=== PATIENT | male | born 1995 | race Caucasian/White ===

== ENCOUNTER 2018-01-01 13:52 | Emergency (ER) | payer OTHER, SELFPAY ==
[2018-01-01 14:09] VITALS: BP 144/80; PULSE 89; RESP 32; TEMP 37.1; O2SAT 100
--- NOTE | 2018-01-01 14:15 | DI.RAD.S_ITS ---
PROCEDURE: XR CHEST 1V INDICATIONS: soa TECHNIQUE: One view of the chest was acquired. COMPARISON: None. FINDINGS: Surgical changes and devices: None. Lungs and pleura: No pleural effusions or pneumothorax. Lungs are clear. Mediastinum: Mediastinal contours appear normal. Heart size is normal. Bones and chest wall: No suspicious bony lesions. Overlying soft tissues appear unremarkable. IMPRESSION: No acute cardiopulmonary abnormality Dictated by: Mika Cruz M.D. on 01/01/2018 at 14:38 Approved by: Mika Cruz M.D. on 01/01/2018 at 14:38
--- NOTE | 2018-01-01 14:35 | PC.NURSE ---
h/o anxiety, has weaned off zoloft. States usually only gets anxiety at night 'while sleeping'. Continues to be anxious, difficult to verbally redirect.
[2018-01-01 15:05] VITALS: BP 123/70; PULSE 75; RESP 12; O2SAT 100
--- NOTE | 2018-01-01 15:08 | ED.SOB ---
HPI - SOB/Dyspnea <JAYNE Gomez - Last Filed: 01/01/18 22:26> General Chief Complaint: Shortness of Breath/Dyspnea Stated Complaint: CANT BREATHE, FEELS TINGLING, DIZZY Time Seen by Provider: 01/01/18 15:16 Source: patient Mode of arrival: ambulatory Limitations: no limitations History of Present Illness 22-year-old male with history of anxiety and panic attacks here for complaint of having feelings of anxiousness with chest pressure and tingling to his upper extremities. He denies any chest pain. No fevers no chills. He is not having any discomfort at this time. He does report that he was taking off his Zoloft a few months ago. He denies any recent stress or stressors. He denies any other concerns or complaints at this time. Related Data Home Medications Medication Instructions Recorded Confirmed No Known Home Medications 01/01/18 01/01/18 Allergies Allergy/AdvReac Type Severity Reaction Status Date / Time No Known Drug Allergies Allergy Verified 01/01/18 14:13 Review of Systems <JAYNE Gomez - Last Filed: 01/01/18 22:26> Constitutional Denies chills, Denies fever(s), Denies lethargy and Denies weakness Eyes Denies change in vision, Denies eye discharge, Denies irritation and Denies loss of vision ENT Ears, Nose, Mouth, and Throat: Denies change in voice, Denies neck pain and Denies sore throat Cardiovascular Denies chest pain, Denies irregular heart rhythm, Denies lightheadedness, Denies palpitations, Denies dyspnea, Denies dyspnea on exertion and Denies orthopnea Comments: Chest pressure Respiratory Denies cough, Denies dyspnea, Denies dyspnea on exertion and Denies wheezing Gastrointestinal Gastrointestinal: Denies abdominal pain, Denies change in bowel habits, Denies diarrhea, Denies nausea and Denies vomiting Genitourinary Denies hematuria, Denies flank pain, Denies urinary incontinence and Denies urinary urgency Musculoskeletal Denies neck pain Integumentary/Breasts Denies pruritus, Denies erythema, Denies rash and Denies wounds Neurologic Denies confusion, Denies loss of vision and Denies weakness Psychiatric Reports anxiety, Denies confusion, Denies depression, Denies homicidal ideation and Denies suicidal ideation Endocrine Denies palpitations Hematologic/Lymphatic Denies easy bruising Allergic/Immunologic Denies wheezing Exam <JAYNE Gomez - Last Filed: 01/01/18 22:26> Initial Vital Signs Initial Vital Signs: Vital Signs Temperature 98.8 F 01/01/18 14:09 Pulse Rate 89 01/01/18 14:09 Respiratory Rate 32 H 01/01/18 14:09 Blood Pressure 144/80 H 01/01/18 14:09 Pulse Oximetry 100 01/01/18 14:09 Const General: cooperative and well developed Nutritional Appearance: well nourished Orientation: alert, awake, oriented x3 and not confused [facility] Mouth: oral mucosae normal and moist mucous membranes Eyes Conjunctivae: conjunctivae normal Sclera: sclerae normal Pupils: PERRL EOM: EOM intact bilaterally Resp Effort & Inspection: normal respiratory effort, able to speak in complete sentences, no respiratory distress and no use of accessory muscles Auscultation: clear to auscultation bilaterally, no rales, no rhonchi and no wheezes Cardio Rate: regular rate Rhythm: regular rhythm Heart Sounds: no click, no gallops, no murmurs and no rubs Pulses: normal peripheral pulses Skin General: no rashes or lesions noted, No jaundice and No petechiae Neuro General: alert, oriented x3, gait normal and no focal motor deficits Speech: speech normal <Arya Tejada DO - Last Filed: 01/03/18 11:40> Initial Vital Signs Initial Vital Signs: Vital Signs Temperature 98.8 F 01/01/18 14:09 Pulse Rate 89 01/01/18 14:09 Respiratory Rate 32 H 01/01/18 14:09 Blood Pressure 144/80 H 01/01/18 14:09 Pulse Oximetry 100 01/01/18 14:09 Course <JAYNE Gomez - Last Filed: 01/01/18 22:26> Orders Ordered: Discontinued Medications Lorazepam (Ativan) 1 mg IV NOW ONE Stop: 01/01/18 15:17 Last Admin: 01/01/18 15:22 Dose: Lorazepam (Ativan) 1 mg PO NOW ONE Stop: 01/01/18 15:24 Last Admin: 01/01/18 15:27 Dose: 1 mg Vital Signs - 8 hr 01/01/18 15:05 01/01/18 15:37 01/01/18 16:11 Pulse Rate 75 80 66 Respiratory Rate 12 19 14 Blood Pressure [Left Arm] 123/70 H 132/66 H 137/72 H Pulse Oximetry 100 100 99 <Arya Tejada DO - Last Filed: 01/03/18 11:40> Orders Ordered: Discontinued Medications Lorazepam (Ativan) 1 mg IV NOW ONE Stop: 01/01/18 15:17 Last Admin: 01/01/18 15:22 Dose: Lorazepam (Ativan) 1 mg PO NOW ONE Stop: 01/01/18 15:24 Last Admin: 01/01/18 15:27 Dose: 1 mg Vital Signs - 8 hr 01/01/18 15:05 01/01/18 15:37 01/01/18 16:11 Pulse Rate 75 80 66 Respiratory Rate 12 19 14 Blood Pressure [Left Arm] 123/70 H 132/66 H 137/72 H Pulse Oximetry 100 100 99 MDM - SOB/Dyspnea <JAYNE Gomez - Last Filed: 01/01/18 22:26> Lab Data Result diagrams: 01/01/18 15:20 01/01/18 15:20 Lab Results 01/01/18 01/01/18 Range/Units 15:20 15:20 WBC 6.8 (4.5-11.0) X10^3/uL RBC 4.66 (4.5-5.9) X10^6/uL Hgb 14.1 (13.5-17.5) g/dL Hct 39.4 L (41-53) % MCV 84.6 (80-100) fL MCH 30.3 (26-34) PG MCHC 35.8 (30-36) % RDW 12.2 (11.6-14.8) % Plt Count 249 (150-400) X10^3/uL Neut % (Auto) 58.8 (50-75) % Lymph % (Auto) 28.5 (25-40) % Woods % (Auto) 8.2 (3-14) % Eos % (Auto) 3.9 (2-4) % Baso % (Auto) 0.6 (0-2) % Neut # (Auto) 4000 (4312-5890) /uL Sodium 138 (137-145) mmol/L Potassium 3.6 (3.4-5.1) mmol/L Chloride 104 (98-107) mmol/L Carbon Dioxide 23 (22-32) mmol/L BUN 12 (9-20) mg/dL Creatinine 0.80 (0.66-1.25) mg/dL Estimated GFR > 60.0 (>60) mL/min BUN/Creatinine Ratio 15.0 (6-22) Glucose 105 H (70-100) mg/dL Calcium 9.8 (8.4-10.2) mg/dL Total Bilirubin 0.8 (0.2-1.3) mg/dL AST 28 (17-59) IU/L ALT 34 (21-72) IU/L Alkaline Phosphatase 62 (38-126) U/L Total Creatine Kinase 128 (55-170) U/L CK-MB (CK-2) 0.84 (<2.37) ng/mL CK-MB (CK-2) Rel Index 0.7 L (1.5-5.0) % Troponin I < 0.012 (0.01-0.034) ng/mL Total Protein 7.1 (6.3-8.2) g/dL Albumin 4.4 (3.5-5.0) g/dL Globulin 2.7 (1.7-4.1) g/dL Albumin/Globulin Ratio 1.6 (1.0-2.8) Imaging Data Chest x-ray: Radiologist's impression: Patient: LORENZO VARGHESE MR#: [id number] : 1995 Acct:[id number] Age/Sex: 22 / M Date of Service: 01/01/18 Loc: ED Accession Number: [id number] Procedure: XR chest 1V Ordering Provider: Arya Tejada D.O. PROCEDURE: XR CHEST 1V INDICATIONS: soa TECHNIQUE: One view of the chest was acquired. COMPARISON: None. FINDINGS: Surgical changes and devices: None. Lungs and pleura: No pleural effusions or pneumothorax. Lungs are clear. Mediastinum: Mediastinal contours appear normal. Heart size is normal. Bones and chest wall: No suspicious bony lesions. Overlying soft tissues appear unremarkable. IMPRESSION: No acute cardiopulmonary abnormality Dictated by: Mika Cruz M.D. on 01/01/2018 at 14:38 Approved by: Mika Cruz M.D. on 01/01/2018 at 14:38 ECG Data Interpretation: EKG shows normal sinus rhythm with no ST elevation or depression. No ectopy. Ventricular rate of 80. Pr interval of 123. QRS duration 97. QT 357. MDM Narrative Medical decision making narrative: CBC and Chem panel were unremarkable. Chest x-ray was obtained was negative. EKG shows normal sinus rhythm without ST elevation or depression. No ectopy. Cardiac enzymes were obtained were unremarkable. Signs and symptoms presents as anxiety related symptoms with anxiety attack. He was given Ativan in the emergency room which helped his symptoms. Follow up with primary care provider next couple days for re-evaluation and discussion of continued anxiety treatment. For any worsening symptoms return to the emergency room. <Arya Tejada DO - Last Filed: 01/03/18 11:40> Lab Data Lab Results 01/01/18 01/01/18 Range/Units 15:20 15:20 WBC 6.8 (4.5-11.0) X10^3/uL RBC 4.66 (4.5-5.9) X10^6/uL Hgb 14.1 (13.5-17.5) g/dL Hct 39.4 L (41-53) % MCV 84.6 (80-100) fL MCH 30.3 (26-34) PG MCHC 35.8 (30-36) % RDW 12.2 (11.6-14.8) % Plt Count 249 (150-400) X10^3/uL Neut % (Auto) 58.8 (50-75) % Lymph % (Auto) 28.5 (25-40) % Woods % (Auto) 8.2 (3-14) % Eos % (Auto) 3.9 (2-4) % Baso % (Auto) 0.6 (0-2) % Neut # (Auto) 4000 (1775-4845) /uL Sodium 138 (137-145) mmol/L Potassium 3.6 (3.4-5.1) mmol/L Chloride 104 (98-107) mmol/L Carbon Dioxide 23 (22-32) mmol/L BUN 12 (9-20) mg/dL Creatinine 0.80 (0.66-1.25) mg/dL Estimated GFR > 60.0 (>60) mL/min BUN/Creatinine Ratio 15.0 (6-22) Glucose 105 H (70-100) mg/dL Calcium 9.8 (8.4-10.2) mg/dL Total Bilirubin 0.8 (0.2-1.3) mg/dL AST 28 (17-59) IU/L ALT 34 (21-72) IU/L Alkaline Phosphatase 62 (38-126) U/L Total Creatine Kinase 128 (55-170) U/L CK-MB (CK-2) 0.84 (<2.37) ng/mL CK-MB (CK-2) Rel Index 0.7 L (1.5-5.0) % Troponin I < 0.012 (0.01-0.034) ng/mL Total Protein 7.1 (6.3-8.2) g/dL Albumin 4.4 (3.5-5.0) g/dL Globulin 2.7 (1.7-4.1) g/dL Albumin/Globulin Ratio 1.6 (1.0-2.8) Discharge Plan Departure Patient Disposition: Home, Self-Care Clinical Impression: Anxiety attack Discharge Date/Time: 01/01/18 16:30 Interventions: ED Discharge Assessment Last Done: 01/01/18 16:52 Instructions: DI for Anxiety -- Adult, DI for Panic Disorder Activity Restrictions/Additional Instructions: Laboratory results chest x-ray and EKG were obtained today were unremarkable. Signs and symptoms presents as anxiety attack. Follow up with primary care provider in the next few days for re-evaluation for discussion of continued treatment for anxiety. Relaxation techniques as needed to help with symptoms. For any worsening symptoms return to the emergency room. Prescriptions: No Action No Known Home Medications RF: 0 Referrals: [facility] [Provider Group] <Arya Tejada DO - Last Filed: 01/03/18 11:40> Cosign ED Attending Barry Attestation: I was immediately available in the department for consultation. Documentation has been reviewed. I agree with assessment and plan.
[2018-01-01 15:26] LABS: Add Manual Diff / Slide Review NO; Basophils Percent Auto 0.6 % (0-2); Eosinophils Percent Auto 3.9 % (2-4); Hematocrit 39.4 % (41-53); Hemoglobin 14.1 g/dL (13.5-17.5); Lymphocytes Percent Auto 28.5 % (25-40); Mean Corpuscular HGB Conc 35.8 % (30-36); Mean Corpuscular Hemoglobin 30.3 PG (26-34); Mean Corpuscular Volume 84.6 fL (80-100); Monocytes Percent Auto 8.2 % (3-14); Neutrophils Absolute Auto 4000 /uL (3000-5900); Neutrophils Percent Auto 58.8 % (50-75); Platelet Count 249 X10^3/uL (150-400); Red Blood Cell Count 4.66 X10^6/uL (4.5-5.9); Red Cell Distribution Width 12.2 % (11.6-14.8); White Blood Cell Count 6.8 X10^3/uL (4.5-11.0)
[2018-01-01] MEDS: LORazepam 0.5 MG TABLET 1 MG PO (15:27)
[2018-01-01 15:37] VITALS: BP 132/66; PULSE 80; RESP 19; O2SAT 100
[2018-01-01 15:40] LABS: Alanine Aminotransferase 34 IU/L (21-72); Albumin 4.4 g/dL (3.5-5.0); Albumin Globulin Ratio 1.6 (1.0-2.8); Alkaline Phosphatase 62 U/L (38-126); Aspartate Aminotransferase 28 IU/L (17-59); Bilirubin Total 0.8 mg/dL (0.2-1.3); Blood Urea Nitrogen 12 mg/dL (9-20); Calcium 9.8 mg/dL (8.4-10.2); Carbon Dioxide 23 mmol/L (22-32); Chloride 104 mmol/L (98-107); Creatine Kinase 128 U/L (55-170); Estimated Glomerular Filt Rate > 60.0 mL/min (>60); Globulin 2.7 g/dL (1.7-4.1); Glucose 105 mg/dL (70-100); HEMOLYSIS 16 (0-50); Potassium 3.6 mmol/L (3.4-5.1); Sodium 138 mmol/L (137-145); Total Protein 7.1 g/dL (6.3-8.2)
[2018-01-01 15:55] LABS: CKMB % Relative Index 0.7 % (1.5-5.0); Creatine Kinase MB 0.84 ng/mL (<2.37)
[2018-01-01 15:56] LABS: Troponin I < 0.012 ng/mL (0.01-0.034)
[2018-01-01 16:11] VITALS: BP 137/72; PULSE 66; RESP 14; O2SAT 99
--- NOTE | 2018-01-01 16:18 | ED_ITS ---
HPI - SOB/Dyspnea <JAYNE Gomez - Last Filed: 01/01/18 22:26> General Chief Complaint: Shortness of Breath/Dyspnea Stated Complaint: CANT BREATHE, FEELS TINGLING, DIZZY Time Seen by Provider: 01/01/18 15:16 Source: patient Mode of arrival: ambulatory Limitations: no limitations History of Present Illness 22-year-old male with history of anxiety and panic attacks here for complaint of having feelings of anxiousness with chest pressure and tingling to his upper extremities. He denies any chest pain. No fevers no chills. He is not having any discomfort at this time. He does report that he was taking off his Zoloft a few months ago. He denies any recent stress or stressors. He denies any other concerns or complaints at this time. Related Data Home Medications Medication Instructions Recorded Confirmed No Known Home Medications 01/01/18 01/01/18 Allergies Allergy/AdvReac Type Severity Reaction Status Date / Time No Known Drug Allergies Allergy Verified 01/01/18 14:13 Review of Systems <JAYNE Gomez - Last Filed: 01/01/18 22:26> Constitutional Denies chills, Denies fever(s), Denies lethargy and Denies weakness Eyes Denies change in vision, Denies eye discharge, Denies irritation and Denies loss of vision ENT Ears, Nose, Mouth, and Throat: Denies change in voice, Denies neck pain and Denies sore throat Cardiovascular Denies chest pain, Denies irregular heart rhythm, Denies lightheadedness, Denies palpitations, Denies dyspnea, Denies dyspnea on exertion and Denies orthopnea Comments: Chest pressure Respiratory Denies cough, Denies dyspnea, Denies dyspnea on exertion and Denies wheezing Gastrointestinal Gastrointestinal: Denies abdominal pain, Denies change in bowel habits, Denies diarrhea, Denies nausea and Denies vomiting Genitourinary Denies hematuria, Denies flank pain, Denies urinary incontinence and Denies urinary urgency Musculoskeletal Denies neck pain Integumentary/Breasts Denies pruritus, Denies erythema, Denies rash and Denies wounds Neurologic Denies confusion, Denies loss of vision and Denies weakness Psychiatric Reports anxiety, Denies confusion, Denies depression, Denies homicidal ideation and Denies suicidal ideation Endocrine Denies palpitations Hematologic/Lymphatic Denies easy bruising Allergic/Immunologic Denies wheezing Exam <JAYNE Gomez - Last Filed: 01/01/18 22:26> Initial Vital Signs Initial Vital Signs: Vital Signs Temperature 98.8 F 01/01/18 14:09 Pulse Rate 89 01/01/18 14:09 Respiratory Rate 32 H 01/01/18 14:09 Blood Pressure 144/80 H 01/01/18 14:09 Pulse Oximetry 100 01/01/18 14:09 Const General: cooperative and well developed Nutritional Appearance: well nourished Orientation: alert, awake, oriented x3 and not confused [facility] Mouth: oral mucosae normal and moist mucous membranes Eyes Conjunctivae: conjunctivae normal Sclera: sclerae normal Pupils: PERRL EOM: EOM intact bilaterally Resp Effort & Inspection: normal respiratory effort, able to speak in complete sentences, no respiratory distress and no use of accessory muscles Auscultation: clear to auscultation bilaterally, no rales, no rhonchi and no wheezes Cardio Rate: regular rate Rhythm: regular rhythm Heart Sounds: no click, no gallops, no murmurs and no rubs Pulses: normal peripheral pulses Skin General: no rashes or lesions noted, No jaundice and No petechiae Neuro General: alert, oriented x3, gait normal and no focal motor deficits Speech: speech normal <Arya Tejada DO - Last Filed: 01/03/18 11:40> Initial Vital Signs Initial Vital Signs: Vital Signs Temperature 98.8 F 01/01/18 14:09 Pulse Rate 89 01/01/18 14:09 Respiratory Rate 32 H 01/01/18 14:09 Blood Pressure 144/80 H 01/01/18 14:09 Pulse Oximetry 100 01/01/18 14:09 Course <JAYNE Gomez - Last Filed: 01/01/18 22:26> Orders Ordered: Discontinued Medications Lorazepam (Ativan) 1 mg IV NOW ONE Stop: 01/01/18 15:17 Last Admin: 01/01/18 15:22 Dose: Lorazepam (Ativan) 1 mg PO NOW ONE Stop: 01/01/18 15:24 Last Admin: 01/01/18 15:27 Dose: 1 mg Vital Signs - 8 hr 01/01/18 15:05 01/01/18 15:37 01/01/18 16:11 Pulse Rate 75 80 66 Respiratory Rate 12 19 14 Blood Pressure [Left Arm] 123/70 H 132/66 H 137/72 H Pulse Oximetry 100 100 99 <Arya Tejada DO - Last Filed: 01/03/18 11:40> Orders Ordered: Discontinued Medications Lorazepam (Ativan) 1 mg IV NOW ONE Stop: 01/01/18 15:17 Last Admin: 01/01/18 15:22 Dose: Lorazepam (Ativan) 1 mg PO NOW ONE Stop: 01/01/18 15:24 Last Admin: 01/01/18 15:27 Dose: 1 mg Vital Signs - 8 hr 01/01/18 15:05 01/01/18 15:37 01/01/18 16:11 Pulse Rate 75 80 66 Respiratory Rate 12 19 14 Blood Pressure [Left Arm] 123/70 H 132/66 H 137/72 H Pulse Oximetry 100 100 99 MDM - SOB/Dyspnea <JAYNE Gomez - Last Filed: 01/01/18 22:26> Lab Data Result diagrams: 01/01/18 15:20 01/01/18 15:20 Lab Results 01/01/18 01/01/18 Range/Units 15:20 15:20 WBC 6.8 (4.5-11.0) X10^3/uL RBC 4.66 (4.5-5.9) X10^6/uL Hgb 14.1 (13.5-17.5) g/dL Hct 39.4 L (41-53) % MCV 84.6 (80-100) fL MCH 30.3 (26-34) PG MCHC 35.8 (30-36) % RDW 12.2 (11.6-14.8) % Plt Count 249 (150-400) X10^3/uL Neut % (Auto) 58.8 (50-75) % Lymph % (Auto) 28.5 (25-40) % [place] % (Auto) 8.2 (3-14) % Eos % (Auto) 3.9 (2-4) % Baso % (Auto) 0.6 (0-2) % Neut # (Auto) 4000 (3292-5556) /uL Sodium 138 (137-145) mmol/L Potassium 3.6 (3.4-5.1) mmol/L Chloride 104 (98-107) mmol/L Carbon Dioxide 23 (22-32) mmol/L BUN 12 (9-20) mg/dL Creatinine 0.80 (0.66-1.25) mg/dL Estimated GFR > 60.0 (>60) mL/min BUN/Creatinine Ratio 15.0 (6-22) Glucose 105 H (70-100) mg/dL Calcium 9.8 (8.4-10.2) mg/dL Total Bilirubin 0.8 (0.2-1.3) mg/dL AST 28 (17-59) IU/L ALT 34 (21-72) IU/L Alkaline Phosphatase 62 (38-126) U/L Total Creatine Kinase 128 (55-170) U/L CK-MB (CK-2) 0.84 (<2.37) ng/mL CK-MB (CK-2) Rel Index 0.7 L (1.5-5.0) % Troponin I < 0.012 (0.01-0.034) ng/mL Total Protein 7.1 (6.3-8.2) g/dL Albumin 4.4 (3.5-5.0) g/dL Globulin 2.7 (1.7-4.1) g/dL Albumin/Globulin Ratio 1.6 (1.0-2.8) Imaging Data Chest x-ray: Radiologist's impression: Patient: LORENZO VARGHESE MR#: [id number] : 1995 Acct:[id number] Age/Sex: 22 / M Date of Service: 01/01/18 Loc: ED Accession Number: [id number] Procedure: XR chest 1V Ordering Provider: Arya Tejada D.O. PROCEDURE: XR CHEST 1V INDICATIONS: soa TECHNIQUE: One view of the chest was acquired. COMPARISON: None. FINDINGS: Surgical changes and devices: None. Lungs and pleura: No pleural effusions or pneumothorax. Lungs are clear. Mediastinum: Mediastinal contours appear normal. Heart size is normal. Bones and chest wall: No suspicious bony lesions. Overlying soft tissues appear unremarkable. IMPRESSION: No acute cardiopulmonary abnormality Dictated by: Mika Cruz M.D. on 01/01/2018 at 14:38 Approved by: Mika Cruz M.D. on 01/01/2018 at 14:38 ECG Data Interpretation: EKG shows normal sinus rhythm with no ST elevation or depression. No ectopy. Ventricular rate of 80. Pr interval of 123. QRS duration 97. QT 357. MDM Narrative Medical decision making narrative: CBC and Chem panel were unremarkable. Chest x -ray was obtained was negative. EKG shows normal sinus rhythm without ST elevation or depression. No ectopy. Cardiac enzymes were obtained were unremarkable. Signs and symptoms presents as anxiety related symptoms with anxiety attack. He was given Ativan in the emergency room which helped his symptoms. Follow up with primary care provider next couple days for re- evaluation and discussion of continued anxiety treatment. For any worsening symptoms return to the emergency room. <Arya Tejada DO - Last Filed: 01/03/18 11:40> Lab Data Lab Results 01/01/18 01/01/18 Range/Units 15:20 15:20 WBC 6.8 (4.5-11.0) X10^3/uL RBC 4.66 (4.5-5.9) X10^6/uL Hgb 14.1 (13.5-17.5) g/dL Hct 39.4 L (41-53) % MCV 84.6 (80-100) fL MCH 30.3 (26-34) PG MCHC 35.8 (30-36) % RDW 12.2 (11.6-14.8) % Plt Count 249 (150-400) X10^3/uL Neut % (Auto) 58.8 (50-75) % Lymph % (Auto) 28.5 (25-40) % [place] % (Auto) 8.2 (3-14) % Eos % (Auto) 3.9 (2-4) % Baso % (Auto) 0.6 (0-2) % Neut # (Auto) 4000 (3839-1824) /uL Sodium 138 (137-145) mmol/L Potassium 3.6 (3.4-5.1) mmol/L Chloride 104 (98-107) mmol/L Carbon Dioxide 23 (22-32) mmol/L BUN 12 (9-20) mg/dL Creatinine 0.80 (0.66-1.25) mg/dL Estimated GFR > 60.0 (>60) mL/min BUN/Creatinine Ratio 15.0 (6-22) Glucose 105 H (70-100) mg/dL Calcium 9.8 (8.4-10.2) mg/dL Total Bilirubin 0.8 (0.2-1.3) mg/dL AST 28 (17-59) IU/L ALT 34 (21-72) IU/L Alkaline Phosphatase 62 (38-126) U/L Total Creatine Kinase 128 (55-170) U/L CK-MB (CK-2) 0.84 (<2.37) ng/mL CK-MB (CK-2) Rel Index 0.7 L (1.5-5.0) % Troponin I < 0.012 (0.01-0.034) ng/mL Total Protein 7.1 (6.3-8.2) g/dL Albumin 4.4 (3.5-5.0) g/dL Globulin 2.7 (1.7-4.1) g/dL Albumin/Globulin Ratio 1.6 (1.0-2.8) Discharge Plan Departure Patient Disposition: Home, Self-Care Clinical Impression: Anxiety attack Discharge Date/Time: 01/01/18 16:30 Interventions: ED Discharge Assessment Last Done: 01/01/18 16:52 Instructions: DI for Anxiety -- Adult, DI for Panic Disorder Activity Restrictions/Additional Instructions: Laboratory results chest x-ray and EKG were obtained today were unremarkable. Signs and symptoms presents as anxiety attack. Follow up with primary care provider in the next few days for re-evaluation for discussion of continued treatment for anxiety. Relaxation techniques as needed to help with symptoms. For any worsening symptoms return to the emergency room. Prescriptions: No Action No Known Home Medications RF: 0 Referrals: [facility] [Provider Group] <Arya Tejada DO - Last Filed: 01/03/18 11:40> Cosign ED Attending Barry Attestation: I was immediately available in the department for consultation. Documentation has been reviewed. I agree with assessment and plan.
== END 2018-01-01 16:30 | disposition home or self-care (01) ==
PROVIDERS: Emergency Provider Nurse Practitioner Family
DX: F41.0 Panic disorder [episodic paroxysmal anxiety] (principal)
CPT/HCPCS: 36415; 71045; 80053; 82550; 82553; 84484; 85025; 93005; 93010; 99283; 99285